=== PATIENT | female | born 1980 | race Caucasian/White ===

== ENCOUNTER 2020-01-17 15:43 | Observation (INO) ==
[2020-01-17] MEDS ORDERED: ceFAZolin 2,000 MG in 0.9 % Sodium Chloride 100 ML IVPB ONE (15:44)
[2020-01-17] MEDS ORDERED: Pantoprazole 40 MG VIAL IVP SCH (15:44)
[2020-01-17] MEDS ORDERED: *HR* Promethazine 25 MG/ML VIAL IVP PRN (15:44)
[2020-01-17] MEDS ORDERED: Ondansetron 4 MG/2 ML VIAL IVP PRN (15:44)
[2020-01-17] MEDS ORDERED: 0.9 % Sodium Chloride 1,000 ML IVC SCH (15:45)
[2020-01-17] MEDS ORDERED: Acetaminophen 325 MG TABLET PO PRN (15:50)
[2020-01-17 16:34] LABS: INR 1.1; Prothrombin Time 12.4 Seconds (9.4-12.1)
[2020-01-17 16:43] LABS: Alanine Aminotransferase 58 Units/L (7-52); Albumin 3.6 g/dL (3.5-5.7); Albumin/Globulin Ratio 1.1 (1.1-2.2); Alkaline Phosphatase 113 Units/L (34-104); Aspartate Amino Transferase 70 Units/L (13-39); BUN/Creatinine Ratio 14 (6-26); Basophils # 0.1 K/mcL (0.0-0.2); Basophils % 0.7 %; Bilirubin,Direct 0.3 mg/dL (0.0-0.2); Bilirubin,Indirect 0.9 mg/dL (0.0-1.0); Bilirubin,Total 1.2 mg/dL (0.3-1.0); Blood Urea Nitrogen 12 mg/dL (6-20); Calcium 8.9 mg/dL (8.6-10.3); Carbon Dioxide 26 mEq/L (23-29); Chloride 99 mEq/L (98-107); Eosinophils % 0.6 %; Globulin 3.2 g/dL (2.4-3.5); Glucose 101 mg/dL (70-105); Hematocrit 44.5 % (35.3-44.9); Hemoglobin 15.4 g/dL (11.5-15.4); Immature Granulocytes % 0.3 % (0-4); Lymphocytes # 1.5 K/mcL (0.6-4.6); Lymphocytes % 20.1 %; Mean Corpuscular HGB Conc 34.6 g/dL (31.6-35.5); Mean Corpuscular Hemoglobin 38.5 pg (28.0-33.3); Mean Corpuscular Volume 111.3 fL (83.0-100.0); Mean Platelet Volume 10.7 fL (9.4-12.4); Monocytes # 0.7 K/mcL (0.0-1.3); Monocytes % 10.2 %; Osmolality,Calculated 278 (280-300); Platelet Count 253 K/mcL (140-400); Potassium 3.2 mEq/L (3.5-5.1); Red Cell Distribution Width 11.9 % (11.5-14.5); Segmented Neutrophils % 68.1 %; Sodium 134 mEq/L (136-145); Total Protein 6.8 g/dL (6.4-8.9); eGFR For African Americans > 60 (> 60); eGFR For Non-African Americans > 60 (> 60)
[2020-01-17 17:34] LABS: White Blood Count 7.3 K/mcL (4.3-11.1)
[2020-01-17 17:51] LABS: Macrocytosis Present (Not Present)
[2020-01-18] MEDS ORDERED: *HR* FentaNYL (PF) 100 MCG/2 ML VIAL ONE (00:56)
[2020-01-18] MEDS ORDERED: Ondansetron 4 MG/2 ML VIAL ONE (00:56)
[2020-01-18] MEDS ORDERED: *HR* Propofol 200 MG/20 ML VIAL IVP ONE (00:56)
[2020-01-18] MEDS ORDERED: Lidocaine -MPF 2% 2 ML VIAL ONE (00:56)
[2020-01-18] MEDS ORDERED: Dexamethasone 4 MG/ML VIAL ONE (00:56)
[2020-01-18] MEDS ORDERED: *HR* Rocuronium Bromide 50 MG/5 ML VIAL ONE (01:00)
[2020-01-18] MEDS ORDERED: *HR* Succinylcholine 200 MG/10 ML VIAL IVP ONE (01:00)
[2020-01-18] MEDS ORDERED: Isovue-300 50ML VIAL ONE (01:02)
[2020-01-18] MEDS ORDERED: *HR* HYDROmorphone PF 0.5 MG/0.5 ML SYRINGE IVP PRN (01:11)
[2020-01-18] MEDS ORDERED: Scopolamine Patch 1.5 MG PATCH.TD72 ONE (01:12)
[2020-01-18] MEDS ORDERED: EPHEDrine 50 MG/ML VIAL ONE (02:03)
[2020-01-18] MEDS ORDERED: Neostigmine Methylsulfate 3 MG/3 ML SYRINGE ONE (02:23)
[2020-01-18] MEDS ORDERED: *HR* OxyCODONE/APAP 5/325 TABLET PO PRN (03:35)
[2020-01-18] MEDS ORDERED: Ondansetron 4 MG/2 ML VIAL IVP PRN (03:35)
[2020-01-18 04:27] LABS: Basophils % 0.5 %; Eosinophils % 0.2 %; Hematocrit 35.7 % (35.3-44.9); Immature Granulocytes % 0.5 % (0-4); Lymphocytes # 0.7 K/mcL (0.6-4.6); Lymphocytes % 16.5 %; Mean Corpuscular HGB Conc 34.5 g/dL (31.6-35.5); Mean Corpuscular Hemoglobin 38.8 pg (28.0-33.3); Mean Corpuscular Volume 112.6 fL (83.0-100.0); Mean Platelet Volume 10.8 fL (9.4-12.4); Monocytes # 0.3 K/mcL (0.0-1.3); Neutrophils # 3.2 K/mcL (1.6-8.9); Platelet Count 179 K/mcL (140-400); Red Blood Count 3.17 M/mcL (3.82-4.97); Red Cell Distribution Width 12.3 % (11.5-14.5); Segmented Neutrophils % 76.3 %; White Blood Count 4.2 K/mcL (4.3-11.1)
[2020-01-18 04:36] LABS: Hemoglobin 12.3 g/dL (11.5-15.4)
[2020-01-18 04:47] LABS: Alanine Aminotransferase 42 Units/L (7-52); Albumin 2.6 g/dL (3.5-5.7); Albumin/Globulin Ratio 1.1 (1.1-2.2); Alkaline Phosphatase 82 Units/L (34-104); Aspartate Amino Transferase 67 Units/L (13-39); BUN/Creatinine Ratio 16 (6-26); Bilirubin,Total 0.8 mg/dL (0.3-1.0); Blood Urea Nitrogen 11 mg/dL (6-20); Calcium 7.9 mg/dL (8.6-10.3); Carbon Dioxide 25 mEq/L (23-29); Chloride 103 mEq/L (98-107); Globulin 2.3 g/dL (2.4-3.5); Glucose 93 mg/dL (70-105); Osmolality,Calculated 281 (280-300); Sodium 136 mEq/L (136-145); Total Protein 4.9 g/dL (6.4-8.9); eGFR For African Americans > 60 (> 60); eGFR For Non-African Americans > 60 (> 60)
[2020-01-18 05:30] LABS: Macrocytosis Present (Not Present); Platelet Estimate Normal (Normal)
[2020-01-18] MEDS ORDERED: Ketorolac 15 MG/ML VIAL IVP SCH (06:00)
[2020-01-18 06:57] VITALS: BP 115/74
[2020-01-18] MEDS ORDERED: ceFAZolin 2,000 MG in 0.9 % Sodium Chloride 100 ML IVPB SCH (08:00)
[2020-01-18] MEDS ORDERED: Pantoprazole 40 MG VIAL IVP SCH (09:00)
[2020-01-18] MEDS ORDERED: Potassium Chloride Elixir 20 MEQ/15 ML UDC PO ONE (09:15)
== END 2020-01-18 11:09 | disposition home or self-care (01) ==
LOC: 3ANU
PROVIDERS: ADMIT Surgery; ATTEND Surgery